=== PATIENT | female | born 1995 | race Caucasian/White ===

== ENCOUNTER 2020-02-26 20:35 | Emergency (ER) | payer SELFPAY ==
[2020-02-26 21:37] VITALS: BP 131/81; PULSE 111; RESP 18; TEMP 37.5; O2SAT 98; BMI 26.4
--- NOTE | 2020-02-26 22:18 | ED_ITS ---
HPI - Female Genitourinary General: Chief complaint: Urogenital-Female Stated complaint: poss yeast infection Time Seen by Provider: 02/26/20 22:17 Source: patient Mode of arrival: ambulatory Limitations: no limitations Review of Systems General: Reports: 10 or more systems reviewed and unremarkable except in HPI and below Physical Exam Const: COMMON NORMALS: no acute distress and patient oriented x3 GENERAL APPEARANCE: cooperative HENMT: COMMON NORMALS: normocephalic, TM's normal bilaterally and Normal external nose present HEAD & SCALP: normal to inspection and normocephalic NOSE: Normal external nose present TYMPANIC MEMBRANE: TM's normal bilaterally MOUTH: Normal oral and palatal mucosa present THROAT: posterior oropharynx normal Eye: GENERAL EYE: appearance normal, both eyes and all related structures Neck/C-Spine: COMMON NORMALS: full ROM Lymph: LYMPHATIC: no lymphadenopathy noted Chest: COMMONS NORMALS: normal inspection of the chest Resp: COMMON NORMALS: normal respiratory effort EFFORT & INSPECTION: Yes able to speak in complete sentences Cardio: COMMON NORMALS: regular rate and regular rhythm RATE: regular rate RHYTHM: regular rhythm GI: COMMON NORMALS: non-tender : COMMON NORMALS: Yes no CVA tenderness BLADDER/KIDNEY EXAM: Yes no CVA tenderness Back/Pelvis: COMMON NORMALS: no CVA tenderness and thoracic and lumbar spine normal to inspection Extremity: COMMON NORMALS: normal to inspection Neuro: COMMON NORMALS: patient oriented x3 and moves all extremities Psych: COMMON NORMALS: mental status grossly normal and cooperative Skin: COMMON NORMALS: no rashes or lesions noted GENERAL SKIN EXAM: no rashes or lesions noted Course Vital Signs: Vital signs: Vital Signs Temperature 99.5 F 02/26/20 21:37 Pulse Rate 78 02/26/20 23:27 Respiratory Rate 18 02/26/20 23:27 Blood Pressure 132/78 02/26/20 23:27 Pulse Oximetry 98 02/26/20 23:27 MDM - Female MDM Narrative: Medical decision making narrative: Patient comes in today with complaints of vulvovaginal swelling and drainage. Exam notes some vesicular lesions to the vulva with increased swelling vaginal tissue was without ulceration but significant mucoid purulent drainage was noted. Differential diagnosis includes and is not limited to STI, HSV, PID, BV. Urinalysis showed large amount of white blood cells and red blood cells in the urine. Wet prep was negative for trichomonas and yeast but did note some clue cells. Outstanding labs include gonorrhea and chlamydia. Reviewed exam with patient with recommendations for treatment and follow-up to include 1 g of Rocephin, 2000 mg of Flagyl, and 1 g of azithromycin. Patient went then also prescribed valacyclovir for the treatment of HSV. Reviewed exam with patient recommendations of treatment. Patient reported understanding agreed to plan. Lab Data: Labs: Lab Results 02/26/20 02/26/20 Range/Units 22:40 22:40 HCG, Qual Negative (Negative) Urine Color Yellow (Yellow) Urine Appearance Cloudy (CLEAR) Urine pH 6 (5-7) Ur Specific Gravit y 1.020 (1.005-1.030) Urine Protein Neg (Negative) Urine Glucose (UA) Norm (Normal) Urine Ketones Negative (Negative) Urine Blood 2+ H (Negative) Urine Nitrate Negative (Negative) Urine Bilirubin Neg (NEGATIVE) Urine Urobilinogen Norm (Negative) mg/dL Ur Leukocyte Lakeisha ase 2+ H (Negative) Urine RBC 5-10 H (0-2) /hpf Urine WBC >100 H (0-5) /hpf Ur Squamous Epith Cells 5-10 H (0-5) Amorphous Sediment 1+ Urine Bacteria 1+ H (NONE) Urine Mucus Trace Discharge Plan Discharge Patient Disposition: Home, Self-Care Clinical Impression: Bacterial vaginosis Genital HSV Qualifiers: Herpes simplex infection site: vulvovaginitis Qualified Code(s): A60.04 - Herpesviral vulvovaginitis Condition: Stable Prescriptions: New valacyclovir 1 gram tablet 1,000 mg PO BID 10 Days Qty: 20 RF: 0 Discharge Orders: Discharge Order (Routine); Ordered 02/27/20 Ordered By: Gucci Unger Discharge Diet: Usual diet Discharge Activity: Increase activity as tolerated Patient Instructions: Bacterial Vaginosis (ED), Genital Herpes Simplex (ED) Activity Restrictions/Additional Instructions: Drink plenty of water with medication. Use acetaminophen or ibuprofen as needed for pain. Follow-up with primary care in 1 week. Return to the ER for high fever or worsening symptoms. Coding Level of Care Code ED [employer] Supervisor for Sergio Fwd Exam Comprehensive
[2020-02-26 22:49] LABS: HCG Qualitative Urine. Negative (Negative)
[2020-02-26 23:14] LABS: Add Urine Microscopic? YES; Bilirubin Urine Neg (NEGATIVE); Blood Urine 2+ (Negative); Glucose Urine UA Norm (Normal); Ketones Urine Negative (Negative); Leukocyte Esterase Urine 2+ (Negative); Nitrate Urine Negative (Negative); Protein Urine Neg (Negative); Urine Appearance Cloudy (CLEAR); Urine Color Yellow (Yellow); Urobilinogen Urine Norm (Negative); pH Urine 6 (5-7)
[2020-02-26 23:17] LABS: Bacteria Urine 1+; WBC Urine >100 /hpf (0-5)
[2020-02-26 23:18] LABS: Add Urine Culture? Yes; Amorphous Sediment Urine 1+; Mucus Urine TRACE
[2020-02-26 23:27] VITALS: BP 132/78; PULSE 78; RESP 18; O2SAT 98
[2020-02-27] MEDS: cefTRIAXone 1,000 mg SDV 1000 MG IM (00:49)
[2020-02-27] MEDS: metroNIDAZOLE 500 MG Tablet 2000 MG PO (00:49)
[2020-02-27] MEDS: azithromycin 250 mg Tablet 1000 MG PO (00:49)
[2020-02-27 01:06] VITALS: BP 108/64; PULSE 100; RESP 15; O2SAT 98
== END 2020-02-27 01:10 | disposition home or self-care (01) ==
PROVIDERS: Emergency Medicine; Emergency Provider Nurse Practitioner Family
DX: N76.0 Acute vaginitis (principal); A60.04 Herpesviral vulvovaginitis
CPT/HCPCS: 12345; 81001; 81003; 81025; 87070; 87086; 87106; 87205; 87210; 87491; 87591; 87661; 96372; 99283; J0696; Q0144

== ENCOUNTER → 2021-05-08 12:41 | Outpatient (BNVA) | payer OTHER, SELFPAY | PROVIDERS: PCP Family Medicine Adult Medicine; Visit Provider Specialist | DX: G43.019 Migraine without aura, intractable, without status migrainosus (principal); G93.5 Compression of brain | CPT/HCPCS: 99204 ==

== ENCOUNTER → 2021-06-21 10:19 | Outpatient (BNVA) | payer OTHER, SELFPAY | PROVIDERS: PCP Family Medicine Adult Medicine; Visit Provider Specialist | DX: G43.711 Chronic migraine without aura, intractable, with status migrainosus (principal); G93.5 Compression of brain | CPT/HCPCS: 99214 ==

== ENCOUNTER → 2021-07-26 13:22 | Outpatient (BNVA) | payer OTHER, SELFPAY | PROVIDERS: PCP Family Medicine Adult Medicine; Visit Provider Specialist | DX: G43.019 Migraine without aura, intractable, without status migrainosus (principal) | CPT/HCPCS: 99213 ==

== ENCOUNTER 2022-08-20 08:14 | Outpatient (CLI) | payer OTHER, MEDICAID, SELFPAY ==
[2022-08-20 08:39] VITALS: RESP 15
[2022-08-20 08:40] VITALS: BMI 33.2
[2022-08-20 08:47] VITALS: BP 121/77; PULSE 69
[2022-08-20 08:50] VITALS: BP 118/79; PULSE 67
[2022-08-20 09:02] VITALS: BP 111/76; PULSE 73
== END 2022-08-20 09:06 | disposition home or self-care (01) ==
LOC: OPOB 08:20 → OBGYN 08:33
PROVIDERS: PCP Family Medicine Adult Medicine; Visit Provider Family Medicine
DX: O36.8190 Decreased fetal movements, unspecified trimester, not applicable or unspecified (principal); Z3A.00 Weeks of gestation of pregnancy not specified; R60.9 Edema, unspecified; R10.9 Unspecified abdominal pain
CPT/HCPCS: 59025; 99211

== ENCOUNTER 2022-08-26 06:00 | Outpatient (CLI) | payer OTHER, MEDICAID, SELFPAY ==
--- NOTE | 2022-08-26 09:45 | ANES.PREANE2 ---
Pre-Anesthetic Assessment Height/Weight: Height 1.55 m Epidural Familial anesthetic complications: None Social No alcohol and No tobacco Exam alert, oriented x 3, clear to auscultation bilaterally and regular rate & rhythm Airway Mallampati: Class II Dentition: full Neuropsych Chiari Type I malformation, 6.5 mm tonsillar descent on old MRI. Supposed to get new one, per Dr. Palacios. Patient not acutely symptomatic, same chronic headaches. Discussed risk of increased neurologic symptoms/deficits and risk of herniation asssociated with neuraxial and general anesthesia. Recommended reaching back out to Dr. palacios regarding risk of epidural and to hopefully get repeat MRI Anesthetic Plan ASA status: 2 Anesthesia: Regional (specify below) Other: Epidural if patient decides to proceed. Risk of > 500 ml blood loss (7ml/kg in children): Yes, adequate IV access and fluids planned Medications/Allergies Home Medications Medication Instructions Recorded Confirmed Last Taken Type propranolol 10 mg tablet See Rx Instructions .Route 07/16/22 Unknown Rx .COMPLEX #180 tabs omeprazole 20 mg tablet,delayed 20 mg PO DAILY 08/20/22 08/20/22 1 Week Ago History release ~08/13/22 Allergies Allergy/AdvReac Type Severity Reaction Status Date / Time No Known Allergies Allergy Verified 12/24/21 13:21 [facility] Anesthesia Medical History Chiari malformation type I Dizziness and giddiness Hx of fracture of arm Surgical History Hx of adenoidectomy Hx of tonsillectomy Family History Other Chiari malformation Social History Smoking and tobacco status: never smoked Alcohol intake: current Alcohol intake frequency: few times a week Marital status: Single Number of children: 0 Current occupation: [employer] History of recent travel: No Data Anesthesia Cardiac Studies: No Data to Display
== END 2022-08-26 23:00 | disposition home or self-care (01) ==
LOC: OPOB 09-18 10:05
PROVIDERS: PCP Family Medicine Adult Medicine; Visit Provider Family Medicine
DX: Z34.90 Encounter for supervision of normal pregnancy, unspecified, unspecified trimester (principal); Z3A.00 Weeks of gestation of pregnancy not specified
CPT/HCPCS: A6260

== ENCOUNTER 2022-09-01 02:40 | Inpatient (IN) | payer OTHER, MEDICAID, SELFPAY ==
[2022-09-01] VITALS (139 sets, daily range): BP systolic 101–141; BP diastolic 55–87; PULSE 70–144; RESP 18; TEMP 35.8–37.9; O2SAT 88–100; BMI 34.0
[2022-09-01 01:57] LABS: Actim Prom Positive
[2022-09-01 02:20] LABS: Nitrazine Paper, PH Negative
[2022-09-01 03:41] LABS: Glucose Point of Care 88 mg/dL (70-110)
[2022-09-01 03:46] LABS: Basophils % 0.2 %; Hematocrit 27.5 % (37.0-47.0); Hemoglobin 8.6 g/dL (11.5-15.3); Lymphocytes # 1.2 10^3/uL (0.8-4.8); Lymphocytes % 9.9 %; Mean Corpuscular HGB Conc 31.3 g/dL (30.0-36.0); Mean Corpuscular Volume 86.2 fl (81-99); Mean Platelet Volume 10.2 fL (7.4-10.4); Monocytes # 0.6 10^3/uL (0.2-0.9); Monocytes % 4.8 %; Neutrophils % 84.6 %; Nucleated Red Blood Cells % 0.2 %; Platelet Count 253 10^3/cmm (130-400); Red Blood Count 3.19 10^6/uL (4.1-5.3); Red Cell Distribution Width 13.3 % (12.1-15.1); White Blood Count 11.6 10^3/uL (4.0-10.0)
[2022-09-01] MEDS: lactated ringers 1,000 ML 999 ML IV (04:49)
--- NOTE | 2022-09-01 05:32 | ANES.PAUD2 ---
Pre-Anesthetic Update Pre-Anesthetic Assessment: Date of Surgery/Procedure: 09/01/22 Proposed Procedure: Labor Epidural Last Intake: 08/31/22 1900 dinner clears- current Labs Last 48hrs: Short CBC 09/01/22 Range/Units 03:36 WBC 11.6 H (4.0-10.0) 10^3/ uL Hgb 8.6 L (11.5-15.3) g/dL Hct 27.5 L (37.0-47.0) % MCV 86.2 (81-99) fl Plt Count 253 (130-400) 10^3/c mm Neut % (Auto) 84.6 % Neut # (Auto) 9.80 H (1.8-7.7) 10^3/u L Vitals: Temperature 96.4 F L 09/01/22 01:20 Pulse Rate 94 09/01/22 05:27 Respiratory Rate 15 08/20/22 08:39 Blood Pressure 129/75 09/01/22 05:20 Pulse Oximetry 100 09/01/22 05:27 Other Pertinent Information: Other Pertinent Information: Anemia discussed with patient. History of Chiari Malformation discussed patient informed by Dr. Marin that she should be fine . Patient educated that regional anesthesia is considered safe however- patient and RN educated on increased ICP risk and risk of neurological symptoms patient agrees to proceed with epidural. Cardiac Studies: No Data to Display Anesthesia Procedures Epidural: Time Out Performed: Yes Consents Signed: Procedure Consent Consent: requested by attending/covering physician, from patient, risks and benefits reviewed and patient agrees to proceed Lumbar Level: L3-L4 Epidural position: sitting Epidural procedure: sterile prep of area, 1% lidocaine to numb the area, negative for paresthesia passed, test dose given, 1.5% xylocaine 1:200k epi (5ml), no systemic response, sterile dressing applied, L.U.D. no apparent complications and 0.2% Ropiavacaine @ mls/hr (11ml/hr) Additional Comments: 3 attempts KAYCE at 7 threaded to 13 cm 100 mcg Fentanyl given via epidural.
[2022-09-01] MEDS: lactated ringers 1,000 ML 125 ML IV (09:10)
[2022-09-01] MEDS: oxytocin 30 UNIT/500 ML BAG 600 UNIT IV (09:57)
[2022-09-01] MEDS: miSOPROStol 200 mcg Tablet 800 MCG PR (10:01)
--- NOTE | 2022-09-01 10:14 | PM.OPHPUD ---
Labor & Delivery H&P Update Date of Procedure: September 01, 2022 Date H&P Performed: 08/29/22 Admission Diagnosis: IUP [id number] 2 d gestation Diet controlled GDM Planned procedure: expectant management of active labor
--- NOTE | 2022-09-01 10:16 | PM.DELIVERY ---
Delivery Note: Date of delivery: September 01, 2022 Procedure: Normal spontaneous vaginal delivery Delivering Physician: Nahed Marin MD Estimated blood loss (mL): 250 Pre-Delivery Course: The patient had routine care at [facility]. She was blood type A-, antibody negative, she received RhoGAM around 28 weeks gestation. She was GC chlamydia negative, rubella immune, hepatitis B surface antigen nonreactive, hepatitis C antibody nonreactive, HIV nonreactive, RPR nonreactive. She failed her 1 hour and 3-hour glucose tolerance test but she was extremely well diet-controlled gestational diabetes. She was GBS negative. She had a significant amount of edema in the third trimester but no BP abnormalities. Delivery: This is a 26-year old G1, P0 at 38 weeks 2 days gestation who presented to labor and delivery with spontaneous rupture of membranes. Her fluid was clear. She was GBS negative. Rupture of membranes was approximately 10 hours prior to delivery. She received an epidural for pain management. She had a normal spontaneous vaginal delivery of a viable male weight 3255 g, 7 pounds 3 ounces, Apgars 8 and 9 over an intact perineum. The infant was suctioned at delivery and placed on the mother's chest. The cord was clamped and cut. The placenta was delivered grossly intact. There was a very small area of possible abruption about 10-15%. There were bilateral first-degree labial lacerations that were sutured using 3-0 chromic for cosmesis. Due to the patient's starting a low hemoglobin level I went ahead and prophylactically gave her 800 mcg of Cytotec rectally. A&P Assessment and plan (1) Normal spontaneous vaginal delivery: Routine care Coding Level of Care Code Acute Code for Chg Fwd Diagnoses Normal spontaneous vaginal delivery O80
[2022-09-01] MEDS: benzocaine-menthol 78 gm Canister 1 SPRAY TOPICAL (13:50)
[2022-09-01] MEDS: ibuprofen 800 mg tablet PO ×2 (14:48→21:29)
[2022-09-01 22:27] LABS: Hematocrit 25.2 % (37.0-47.0); Mean Corpuscular HGB Conc 31.7 g/dL (30.0-36.0); Mean Corpuscular Hemoglobin 27.1 pg (28.0-34.0); Mean Corpuscular Volume 85.4 fl (81-99); Mean Platelet Volume 10.3 fL (7.4-10.4); Platelet Count 241 10^3/cmm (130-400); Red Blood Count 2.95 10^6/uL (4.1-5.3); Red Cell Distribution Width 13.6 % (12.1-15.1); White Blood Count 15.2 10^3/uL (4.0-10.0)
[2022-09-02 03:10] VITALS: BP 126/79; PULSE 76
--- NOTE | 2022-09-02 07:55 | ANE.PACU2 ---
Inpatient post-anesthesia follow up: Airway intact: Yes Vital signs: Temperature 97.3 F Pulse Rate 76 Respiratory Rate 18 Blood Pressure 126/79 Pulse Oximetry 100 Oxygen Delivery Me thod Room Air Oxygen Flow Rate Fraction of Inspir ed Oxygen Hydration adequate: Yes Nausea and vomiting: No Pain level: 2 Mental status: Baseline
[2022-09-02 08:28] VITALS: TEMP 36.2
[2022-09-02 08:29] VITALS: BP 125/71; PULSE 80
[2022-09-02] MEDS: prenatal vitamin Capsule 1 CAP PO (09:26)
[2022-09-02] MEDS: ibuprofen 800 mg tablet PO (09:26)
[2022-09-02] MEDS: docusate sodium 100 mg Capsule PO (09:28)
--- NOTE | 2022-09-02 12:20 | PM.DCS ---
Discharge Providers Date of Admission: 09/01/22 02:40 Date of Discharge: September 02, 2022 Attending Provider at Admission: Nahed Marin MD Attending Provider at Discharge: Nahed Marin MD Primary Care Provider: Yuniel Siegel MD Diagnoses at Discharge Discharge Diagnosis (1) Normal spontaneous vaginal delivery: Status: Acute Reason for Visit Reason for Visit: Possible ROM at 2300 Hospital Course Hospital Course This is a 26-year-old G1 now P1 who was admitted in active labor. She had a normal spontaneous vaginal delivery of a viable male infant. Mother and did well after delivery. She was ambulating, tolerating a regular diet, had average vaginal bleeding and was comfortable with discharge home. Physical Exam Narrative: Alert and oriented, sitting up in bed eating lunch, abdomen is soft and nontender, fundus is firm and U- 3, extremities have 3+ edema but no calf tenderness Urinary Catheter Management: Macario: Cath Placed During This Visit: yes, but has since been removed by the nurse Reason for Continuing Indwelling Catheter: Decision to DC Catheter Urinary Catheter Date of Insertion: 09/01/22 Urinary Catheter Time of Insertion: 06:40 Date Urinary Catheter Removed: 09/01/22 Time Urinary Catheter Discontinued: 09:10 Discharge Data Studies Completed and Pending Laboratory Results WBC 15.2 10^3/uL (4.0-10.0) H 09/01/22 22:15 RBC 2.95 10^6/uL (4.1-5.3) L 09/01/22 22:15 Hgb 8.0 g/dL (11.5-15.3) L 09/01/22 22:15 Hct 25.2 % (37.0-47.0) L 09/01/22 22:15 MCV 85.4 fl (81-99) 09/01/22 22:15 MCH 27.1 pg (28.0-34.0) L 09/01/22 22:15 MCHC 31.7 g/dL (30.0-36.0) 09/01/22 22:15 RDW 13.6 % (12.1-15.1) 09/01/22 22:15 Plt Count 241 10^3/cmm (130-400) 09/01/22 22:15 MPV 10.3 fL (7.4-10.4) 09/01/22 22:15 Neut % (Auto) 84.6 % 09/01/22 03:36 Lymph % (Auto) 9.9 % 09/01/22 03:36 Andrew % (Auto) 4.8 % 09/01/22 03:36 Eos % (Auto) 0.0 % 09/01/22 03:36 Baso % (Auto) 0.2 % 09/01/22 03:36 Neut # (Auto) 9.80 10^3/uL (1.8-7.7) H 09/01/22 03:36 Lymph # (Auto) 1.2 10^3/uL (0.8-4.8) 09/01/22 03:36 Andrew # (Auto) 0.6 10^3/uL (0.2-0.9) 09/01/22 03:36 Eos # (Auto) 0.0 10^3/uL (0.0-0.8) 09/01/22 03:36 Baso # (Auto) 0.0 10^3/uL (0.0-0.1) 09/01/22 03:36 Nucleated RBC % (auto) 0.2 % 09/01/22 03:36 Nucleated RBCs # 0.0 /100WBC 09/01/22 03:36 POC Glucose 88 mg/dL (70-110) 09/01/22 03:12 Insulin-like GF I Positive 09/01/22 01:47 Vitals Last Vital Signs Temp 97.2 F L 09/02/22 08:28 Pulse 80 09/02/22 08:29 Resp 18 09/01/22 11:46 BP 125/71 09/02/22 08:29 Pulse Ox 100 09/01/22 09:07 O2 Del Method 09/01/22 02:21 Discharge Plan Discharge Patient Disposition: Home Condition: Stable Prescriptions: Continued omeprazole 20 mg Tablet,Delayed Release (Dr/Ec) 20 mg PO DAILY Discharge Orders: Discharge Order (Routine); Ordered 09/02/22 Ordered By: Nahed Marin Referrals: Nahed Marin MD [Physician] - 1 month Discharge Diet: Usual diet Discharge Activity: Limit activity as instructed Patient Instructions: Opioid Safety Discharge Attestations Time Spent in Discharge Care*: less than 30 min Quality Metrics Clinical Quality Measures [ No reported AMI, CVA or VTE this stay] Coding Level of Care Code Acute Chg FW DC note Diagnoses Normal spontaneous vaginal delivery O80
[2022-09-02 14:48] VITALS: BP 123/83; PULSE 69
[2022-09-02 14:49] VITALS: TEMP 36.5
[2022-09-02 15:34] VITALS: BP 123/83; PULSE 18; RESP 69; TEMP 36.5
== END 2022-09-02 15:30 | disposition home or self-care (01) | DRG 807 ==
LOC: OPOB 09:32 → OBGYN 09:32
PROVIDERS: Admitting Provider Family Medicine; PCP Family Medicine Adult Medicine; Visit Provider Family Medicine
DX: O42.02 Full-term premature rupture of membranes, onset of labor within 24 hours of rupture (principal); Z37.0 Single live birth; O24.420 Gestational diabetes mellitus in childbirth, diet controlled; O70.0 First degree perineal laceration during delivery; Z3A.38 38 weeks gestation of pregnancy; O26.893 Other specified pregnancy related conditions, third trimester; Z67.11 Type A blood, Rh negative
CPT/HCPCS: 36415; 36416; 51702; 59025; 59409; 82962; 83986; 84112; 85025; 85027; 96374; 99211; J2590; J2795; J3010; J7120

== ENCOUNTER 2022-12-05 06:57 | Outpatient (CLI) | payer OTHER, MEDICAID, SELFPAY ==
--- NOTE | 2022-12-05 07:15 | MR_ITS ---
WS: [id number] MRI HEAD WITHOUT CONTRAST TECHNIQUE: Sagittal T1, T2 axial, T2 axial FLAIR, axial and coronal T1 images, axial susceptibility w eighted imaging, axial diffusion weighted images, and coronal T2 images were obtained. CLINICAL INFORMATION: G43.711 - Chronic migraine without aura, intractable, wit... COMPARISON: MRI 2012 FINDINGS: No evidence of restricted diffusion to suggest acute ischemia. Ventricular system and basal cisterns are patent. Minimal periventricular white matter changes unchanged in appearance since 2012. This is nonspecific in a patient this age but can be seen with migraine headaches. Normal posterior fossa. No rmal vascular flow voids at the skull base. No extra-axial fluid collections. No evidence of mass or mass effect. No hemosiderin on susceptibly weighted images. Normal optic chiasm and pituitary infundibulum. Tempor al lobes and hippocampal formations are normal in appearance. Normal posterior nasopharynx. Normal pa rapharyngeal fat. Retention cyst RIGHT maxillary sinus. Mastoid air cells well aerated. Incidental dy strophic calcification along the anterior falx. MR/MR head wo con* [id number] IMPRESSION: 1. No evidence of restricted diffusion to suggest acute ischemia. 2. Minimal periventricular white matter changes of doubtful clinical significa nce but can be seen with migraine headaches. This is unchanged since 2012 3. No hemosiderin on the susceptibly weighted images. 4. Normal optic chiasm and pituitary infundibulum. 5. Small retention cyst RIGHT maxillary sinus measuring 7 mm. 6. Chiari 1 malformation with cerebellar tonsils 3.7 mm below the foramen magn um. No hydrocephalus.
== END 2022-12-05 06:58 | disposition home or self-care (01) ==
LOC: RAD 06:59
PROVIDERS: PCP Family Medicine Adult Medicine; Visit Provider Specialist
DX: G43.711 Chronic migraine without aura, intractable, with status migrainosus (principal); G93.5 Compression of brain
CPT/HCPCS: 70551